=== PATIENT | male | born 1975 | race Caucasian/White ===

== ENCOUNTER 2025-04-18 04:17 | Inpatient (IN) | payer BC, SELFPAY ==
[2025-04-18] VITALS (206 sets, daily range): BP systolic 125–214; BP diastolic 95–152; PULSE 90–147; RESP 0–26; TEMP 36.4–37.2; O2SAT 90–100; BMI 37.3
--- NOTE | 2025-04-18 04:31 | ECG_ITS ---
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
--- NOTE | 2025-04-18 04:32 | ED_ITS ---
Documented by User: Sydney Maldonado MD 04/18/25 05:24 HPI - GI Bleed 2 General: Chief complaint: GI Bleed Stated complaint: Vomiting Blood\Fever\Chills Time Seen by Provider: 04/18/25 04:26 History of Present Illness: 49-year-old man history of hypertension, diabetes and obesity who presents emergency room with concerns for GI bleeding. He had had some epigastric discomfort earlier. He then developed some vomiting that was bright red. He said he had had a red drink but then he had some red stools came afraid that he was having GI bleeding. He says his vomit smelled like iron so he was sure that it was blood. He has been taking ibuprofen and eaten spicy foods recently. Never had anything like this before. He said he is very diaphoretic but on sure if he had a fever. Related Data Previous Rx's ?Medication ?Instructions ?Recorded lisinopril 10 mg tablet 10 mg PO DAILY #90 tabs 07/16 metformin 500 mg tablet,extended 500 mg PO DAILY #90 t abs 12/31/23 release 24 hr sertraline 100 mg tablet 150 mg (1.5 x 100 mg) PO SHIRLEY LY 12/31/23 #145 tabs Allergies Allergy/AdvReac Type Severity Reaction Status Date / Time No Known Allergies Allergy Verified 10/28/24 08:12 Review of Systems 2 Narrative: Constitutional symptoms: Negative except as documented in HPI. Skin symptoms: Negative except as documented in HPI. Eye symptoms: Negative except as documented in HPI. ENMT symptoms: Negative except as documented in HPI. Respiratory symptoms: Negative except as documented in HPI. Cardiovascular symptoms: Negative except as documented in HPI. Gastrointestinal symptoms: Negative except as documented in HPI. Genitourinary symptoms: Negative except as documented in HPI. Musculoskeletal symptoms: Negative except as documented in HPI. Neurologic symptoms: Negative except as documented in HPI. Psychiatric symptoms: Negative except as documented in HPI. Endocrine symptoms: Negative except as documented in HPI. PFSH ED 2 PFSH: Medical History Hyperglycemia Depression Hypertension Physical Exam 2 Narrative: EXAM NARRATIVE: General: Alert, no acute distress. Skin: Warm, dry. Head: Normocephalic, atraumatic. Neck: Supple, trachea midline. Eye: Extraocular movements are intact. Ears, nose, mouth and throat: mucosa moist. Cardiovascular: Regular, Normal peripheral perfusion. Respiratory: Lungs are clear to auscultation, respirations are non-labored, breath sounds are equal, Symmetrical chest wall expansion. Gastrointestinal: Soft, Nontender, Non distended Musculoskeletal: Normal ROM, no deformity. Neurological: Alert and oriented, No focal neurological deficit observed. Psychiatric: Cooperative, appropriate mood & affect. Course 2 Vital Signs: Vital signs: Vital Signs Temperature 98.3 F 04/18/25 04:25 Pulse Rate 130 H 04/18/25 06:46 Respiratory Rate 18 04/18/25 06:46 Blood Pressure 174/111 04/18/25 06:46 Pulse Oximetry 98 04/18/25 06:46 Oxygen Delivery Me thod Room Air 04/18/25 06:46 MDM - GI Bleed Medical Decision Making Medical decision making: Differential diagnosis including but not limited to and based on the above HPI, review of systems and physical exam: In a patient with upper GI bleeding would have concern for upper gi bleed from varices or ulcer. Concern for anemia. Concern for liver disease. concern for anticoagulation. Orders placed to evaluate differential diagnosis based on the above differential, HPI and physical exam EKG: Time 443. Rate 127. Sinus tachycardia, No ST-T changes, no ectopy, normal [place] & QRS intervals, This was reviewed and interpreted by myself the ER physician at 4:40 AM. 4:50 AM. Patient blood pressure dropped from initial down to the 80s and then back up to 108. At that point with a normal hemoglobin I treated him empirically for sepsis with 2 L normal saline and broad-spectrum antibiotics. Zyvox and Merrem. Lab Review: Laboratory results were reviewed and interpreted by myself the emergency room physician. Initial lab work shows white count of 24,000 with a hemoglobin of 15 and platelets of 463. Patient care transitioned Dr. Smiley at shift change. Lab Data 04/18/25 04:48 04/18/25 04:48 Radiology Impressions Abdomen/Pelvis CT 04/18/25 05:24 IMPRESSION: 1. No evidence of acute abdominal or pelvic process. 2. Hepatic steatosis. 3. Left upper pole renal cortical lesions measuring 3.3 and 4.7 cm which are slightly hyperdense to water and thus indeterminate. Follow-up nonemergent renal ultrasound is recommended to assess composition. COMMENTS: Consistent with the [place] [employer]'s Incidental Findings Committee white paper (J Am Leatha Radiol 2018): Any incidental renal lesion less than 1 cm or classified as too small to characterize, or any incidental cystic renal lesion characterized as simple-appearing, is likely benign. No follow-up imaging is recommended for these lesions per consensus recommendations based on imaging criteria. Laboratory Results WBC 24.24 10^3/uL (3.29-11.43) H 04/18/25 04:48 RBC 5.75 10^6/uL (3.85-5.65) H 04/18/25 04:48 Hgb 15.70 g/dL (11.27-16.99) 04/18/25 04:48 Hct 48.3 % (37-53) 04/18/25 04:48 MCV 84.0 fl (82-101) 04/18/25 04:48 MCH 27.3 pg (27-33) 04/18/25 04:48 MCHC 32.5 g/dL (30-55) 04/18/25 04:48 RDW 13.8 % (12.1-15.1) 04/18/25 04:48 Plt Count 463 10^3/cmm (157-399) H 04/18/25 04:48 MPV 10.5 fL (7.4-10.4) H 04/18/25 04:48 Neut % (Auto) 84.9 % 04/18/25 04:48 Lymph % (Auto) 9.8 % 04/18/25 04:48 [place] % (Auto) 4.3 % 04/18/25 04:48 Eos % (Auto) 0.1 % 04/18/25 04:48 Baso % (Auto) 0.4 % 04/18/25 04:48 Neut # (Auto) 20.58 10^3/uL (1.8-7.7) H 04/18/25 04:48 Lymph # (Auto) 2.4 10^3/uL (0.8-4.8) 04/18/25 04:48 [place] # (Auto) 1.1 10^3/uL (0.2-0.9) H 04/18/25 04:48 Eos # (Auto) 0.0 10^3/uL (0.0-0.8) 04/18/25 04:48 Baso # (Auto) 0.1 10^3/uL (0.0-0.1) 04/18/25 04:48 Nucleated RBC % (auto) 0 % 04/18/25 04:48 Nucleated RBCs # 0.0 /100WBC 04/18/25 04:48 PT 13.80 SECONDS (12.1-14.9) 04/18/25 04:48 INR 0.99 (0.8-1.2) 04/18/25 04:48 APTT 27.5 SECONDS (23.9-36.7) 04/18/25 04:48 Specimen Type Arterial 04/18/25 05:23 Sample Site Brachial, right 04/18/25 05:23 ABG pH 7.44 (7.35-7.45) 04/18/25 05:23 ABG pCO2 26.3 mmHg (35-45) L 04/18/25 05:23 ABG pO2 107.0 mmHg (80.0-100.0) H 04/18/25 05:23 ABG PO2/FiO2 Ratio 509 04/18/25 05:23 ABG HCO3 17.7 mmol/L (22-26) L 04/18/25 05:23 ABG O2 Saturation 99.1 04/18/25 05:23 ABG Base Excess -5.2 mmol/L (-2.0-2.0) L 04/18/25 05:23 Ajay Test N/a 04/18/25 05:23 A-a O2 Gradient 1.0 mmHg (5-10) L 04/18/25 05:23 Hematocrit 36.9 % (42-52) L 04/18/25 05:23 Hgb O2 Saturation 97.0 % (95-100) 04/18/25 05:23 Carboxyhemoglobin 1.2 %THgb (0.4-20.1) 04/18/25 05:23 Methemoglobin 1.0 % (0.4-1.5) 04/18/25 05:23 Total Hemoglobin 12.0 g/dL (14-18) L 04/18/25 05:23 Sodium 143.0 mmol/L (131-143) 04/18/25 05:23 Potassium 3.2 mmol/L (3.5-5.0) L 04/18/25 05:23 Glucose 141.0 mg/dL (70-115) H 04/18/25 05:23 Ionized Calcium 1.1 mmol/L (1.1-1.4) 04/18/25 05:23 O2 Delivery Device Room air 04/18/25 05:23 FiO2 21.0 % 04/18/25 05:23 Sales Agent Pest Control Service ID Amh 04/18/25 05:23 Sodium 141 mmol/L (136-145) 04/18/25 04:48 Potassium 4.3 mmol/L (3.5-5.1) 04/18/25 04:48 Chloride 104 mmol/L (98-107) 04/18/25 04:48 Carbon Dioxide 23 mmol/L (22-29) 04/18/25 04:48 Anion Gap 18.3 (5-19) 04/18/25 04:48 BUN 38 mg/dL (6-20) H 04/18/25 04:48 Creatinine 0.9 mg/dL (0.7-1.2) 04/18/25 04:48 GFR Calculation 90.4 mL/min (90-130) 04/18/25 04:48 Glucose 155 mg/dL (65-115) H 04/18/25 04:48 Calculated Osmolality 304 mOsm/kg (285-295) H 04/18/25 04:48 Lactic Acid 3.1 mmol/L (0.5-2.2) H 04/18/25 04:48 Calcium 10.2 mg/dL (8.5-10.5) 04/18/25 04:48 Total Bilirubin 0.6 mg/dL (0.15-1.2) 04/18/25 04:48 AST 11 U/L (0-40) 04/18/25 04:48 ALT 18 U/L (0-41) 04/18/25 04:48 Alkaline Phosphatase 50 U/L (40-130) 04/18/25 04:48 Troponin T Baseline 26 ng/L (0-15) H 04/18/25 04:48 C-Reactive Protein 3.5 mg/L (0.0-4.9) 04/18/25 04:48 Total Protein 6.8 g/dL (6.6-8.7) 04/18/25 04:48 Albumin 4.5 g/dL (3.5-5.2) 04/18/25 04:48 Globulin 2.3 g/dL (1.3-4.6) 04/18/25 04:48 Lipase 26 U/L (13-60) 04/18/25 04:48 Urine Color Yellow (Yellow) 04/18/25 06:15 Urine Appearance Clear (CLEAR) 04/18/25 06:15 Urine pH 6.0 (5-7) 04/18/25 06:15 Ur Specific [place] 1.027 (1.005-1.030) 04/18/25 06:15 Urine Protein Negative (Negative) 04/18/25 06:15 Urine Glucose (UA) Negative (Normal) 04/18/25 06:15 Urine Ketones 1+ (Negative) H 04/18/25 06:15 Urine Blood Negative (Negative) 04/18/25 06:15 Urine Nitrate Negative (Negative) 04/18/25 06:15 Urine Bilirubin Negative (Negative) 04/18/25 06:15 Urine Urobilinogen 0.2 mg/dL (Negative) 04/18/25 06:15 Ur Leukocyte Esterase Negative (Negative) 04/18/25 06:15 Urine RBC 0-2 /hpf (0-2) 04/18/25 06:15 Urine WBC 0-5 /hpf (0-5) 04/18/25 06:15 Ur Squamous Epith Cells 0-5 /hpf (0-5) 04/18/25 06:15 Amorphous Sediment Not Reportable 04/18/25 06:15 Urine Bacteria None seen /hpf (NONE) 04/18/25 06:15 Hyaline Casts 0-4 /lpf H 04/18/25 06:15 Influenza A (PCR) Negative (Negative) 04/18/25 04:48 Influenza Type B (PCR) Negative (Negative) 04/18/25 04:48 RSV (PCR) Negative (Negative) 04/18/25 04:48 SARS-CoV-2 (PCR) Negative (Negative) 04/18/25 04:48 Discharge Plan Discharge Patient Disposition: Admitted As Inpatient Clinical Impression: Upper gastrointestinal hemorrhage, Sepsis, Diabetes mellitus Condition: Stable Sign Out Sign Out Data: Patient Sign Out occurred on 04/18/25 at 05:29. Patient's care was discussed, and care was transferred from Sydney Maldonado MD to Juarez Smiley DO. Coding Level of Care Code ED Reading Instructor for Chg Fwd Documented by User: Juarez Smiley DO 04/18/25 06:58 HPI - GI Bleed 2 General: Chief complaint: GI Bleed Stated complaint: Vomiting Blood\Fever\Chills Time Seen by Provider: 04/18/25 04:26 Related Data Previous Rx's ?Medication ?Instructions ?Recorded lisinopril 10 mg tablet 10 mg PO DAILY #90 tabs 07/16 metformin 500 mg tablet,extended 500 mg PO DAILY #90 t abs 12/31/23 release 24 hr sertraline 100 mg tablet 150 mg (1.5 x 100 mg) PO SHIRLEY LY 12/31/23 #145 tabs Allergies Allergy/AdvReac Type Severity Reaction Status Date / Time No Known Allergies Allergy Verified 10/28/24 08:12 PFSH ED 2 PFSH: Medical History Hyperglycemia Depression Hypertension Course 2 Vital Signs: Vital signs: Vital Signs Temperature 98.3 F 04/18/25 04:25 Pulse Rate 130 H 04/18/25 06:46 Respiratory Rate 18 04/18/25 06:46 Blood Pressure 174/111 04/18/25 06:46 Pulse Oximetry 98 04/18/25 06:46 Oxygen Delivery Me thod Room Air 04/18/25 06:46 MDM - GI Bleed Medical Decision Making Medical decision making: Differential diagnosis including but not limited to and based on the above HPI, review of systems and physical exam: In a patient with upper GI bleeding would have concern for upper gi bleed from varices or ulcer. Concern for anemia. Concern for liver disease. concern for anticoagulation. Orders placed to evaluate differential diagnosis based on the above differential, HPI and physical exam EKG: Time 443. Rate 127. Sinus tachycardia, No ST-T changes, no ectopy, normal [place] & QRS intervals, This was reviewed and interpreted by myself the ER physician at 4:40 AM. 4:50 AM. Patient blood pressure dropped from initial down to the 80s and then back up to 108. At that point with a normal hemoglobin I treated him empirically for sepsis with 2 L normal saline and broad-spectrum antibiotics. Zyvox and Merrem. Lab Review: Laboratory results were reviewed and interpreted by myself the emergency room physician. Initial lab work shows white count of 24,000 with a hemoglobin of 15 and platelets of 463. Patient care transitioned Dr. Smiley at shift change. Care assumed at change of shift patient has signs of sepsis. Lactic acid elevated white count markedly elevated he is already received Protonix. Hemoglobin initially is stable will need to be repeated he is repeat received appropriate written broad-spectrum antibiotics. He has received 2 L of normal saline ordered 30 mL/kg on ideal body weight because he is obese. This at another 190 mL liters of normal saline minimal run rated [address] does not show any acute pathology in the abdomen or pelvis. Lipase is normal. BUN is elevated to suspect based on his history and his labs he has had a upper GI bleed. Will admit likely will need EGD discussed with hospitalist, consult surgery Medical Records I reviewed the patient's medical records. Lab Data I reviewed the patient's lab results. 04/18/25 04:48 04/18/25 04:48 Radiology Impressions Abdomen/Pelvis CT 04/18/25 05:24 IMPRESSION: 1. No evidence of acute abdominal or pelvic process. 2. Hepatic steatosis. 3. Left upper pole renal cortical lesions measuring 3.3 and 4.7 cm which are slightly hyperdense to water and thus indeterminate. Follow-up nonemergent renal ultrasound is recommended to assess composition. COMMENTS: Consistent with the [place] [employer]'s Incidental Findings Committee white paper (J Am Leatha Radiol 2018): Any incidental renal lesion less than 1 cm or classified as too small to characterize, or any incidental cystic renal lesion characterized as simple-appearing, is likely benign. No follow-up imaging is recommended for these lesions per consensus recommendations based on imaging criteria. Laboratory Results WBC 24.24 10^3/uL (3.29-11.43) H 04/18/25 04:48 RBC 5.75 10^6/uL (3.85-5.65) H 04/18/25 04:48 Hgb 15.70 g/dL (11.27-16.99) 04/18/25 04:48 Hct 48.3 % (37-53) 04/18/25 04:48 MCV 84.0 fl (82-101) 04/18/25 04:48 MCH 27.3 pg (27-33) 04/18/25 04:48 MCHC 32.5 g/dL (30-55) 04/18/25 04:48 RDW 13.8 % (12.1-15.1) 04/18/25 04:48 Plt Count 463 10^3/cmm (157-399) H 04/18/25 04:48 MPV 10.5 fL (7.4-10.4) H 04/18/25 04:48 Neut % (Auto) 84.9 % 04/18/25 04:48 Lymph % (Auto) 9.8 % 04/18/25 04:48 [place] % (Auto) 4.3 % 04/18/25 04:48 Eos % (Auto) 0.1 % 04/18/25 04:48 Baso % (Auto) 0.4 % 04/18/25 04:48 Neut # (Auto) 20.58 10^3/uL (1.8-7.7) H 04/18/25 04:48 Lymph # (Auto) 2.4 10^3/uL (0.8-4.8) 04/18/25 04:48 [place] # (Auto) 1.1 10^3/uL (0.2-0.9) H 04/18/25 04:48 Eos # (Auto) 0.0 10^3/uL (0.0-0.8) 04/18/25 04:48 Baso # (Auto) 0.1 10^3/uL (0.0-0.1) 04/18/25 04:48 Nucleated RBC % (auto) 0 % 04/18/25 04:48 Nucleated RBCs # 0.0 /100WBC 04/18/25 04:48 PT 13.80 SECONDS (12.1-14.9) 04/18/25 04:48 INR 0.99 (0.8-1.2) 04/18/25 04:48 APTT 27.5 SECONDS (23.9-36.7) 04/18/25 04:48 Specimen Type Arterial 04/18/25 05:23 Sample Site Brachial, right 04/18/25 05:23 ABG pH 7.44 (7.35-7.45) 04/18/25 05:23 ABG pCO2 26.3 mmHg (35-45) L 04/18/25 05:23 ABG pO2 107.0 mmHg (80.0-100.0) H 04/18/25 05:23 ABG PO2/FiO2 Ratio 509 04/18/25 05:23 ABG HCO3 17.7 mmol/L (22-26) L 04/18/25 05:23 ABG O2 Saturation 99.1 04/18/25 05:23 ABG Base Excess -5.2 mmol/L (-2.0-2.0) L 04/18/25 05:23 Ajay Test N/a 04/18/25 05:23 A-a O2 Gradient 1.0 mmHg (5-10) L 04/18/25 05:23 Hematocrit 36.9 % (42-52) L 04/18/25 05:23 Hgb O2 Saturation 97.0 % (95-100) 04/18/25 05:23 Carboxyhemoglobin 1.2 %THgb (0.4-20.1) 04/18/25 05:23 Methemoglobin 1.0 % (0.4-1.5) 04/18/25 05:23 Total Hemoglobin 12.0 g/dL (14-18) L 04/18/25 05:23 Sodium 143.0 mmol/L (131-143) 04/18/25 05:23 Potassium 3.2 mmol/L (3.5-5.0) L 04/18/25 05:23 Glucose 141.0 mg/dL (70-115) H 04/18/25 05:23 Ionized Calcium 1.1 mmol/L (1.1-1.4) 04/18/25 05:23 O2 Delivery Device Room air 04/18/25 05:23 FiO2 21.0 % 04/18/25 05:23 Sales Agent Pest Control Service ID Amh 04/18/25 05:23 Sodium 141 mmol/L (136-145) 04/18/25 04:48 Potassium 4.3 mmol/L (3.5-5.1) 04/18/25 04:48 Chloride 104 mmol/L (98-107) 04/18/25 04:48 Carbon Dioxide 23 mmol/L (22-29) 04/18/25 04:48 Anion Gap 18.3 (5-19) 04/18/25 04:48 BUN 38 mg/dL (6-20) H 04/18/25 04:48 Creatinine 0.9 mg/dL (0.7-1.2) 04/18/25 04:48 GFR Calculation 90.4 mL/min (90-130) 04/18/25 04:48 Glucose 155 mg/dL (65-115) H 04/18/25 04:48 Calculated Osmolality 304 mOsm/kg (285-295) H 04/18/25 04:48 Lactic Acid 3.1 mmol/L (0.5-2.2) H 04/18/25 04:48 Calcium 10.2 mg/dL (8.5-10.5) 04/18/25 04:48 Total Bilirubin 0.6 mg/dL (0.15-1.2) 04/18/25 04:48 AST 11 U/L (0-40) 04/18/25 04:48 ALT 18 U/L (0-41) 04/18/25 04:48 Alkaline Phosphatase 50 U/L (40-130) 04/18/25 04:48 Troponin T Baseline 26 ng/L (0-15) H 04/18/25 04:48 C-Reactive Protein 3.5 mg/L (0.0-4.9) 04/18/25 04:48 Total Protein 6.8 g/dL (6.6-8.7) 04/18/25 04:48 Albumin 4.5 g/dL (3.5-5.2) 04/18/25 04:48 Globulin 2.3 g/dL (1.3-4.6) 04/18/25 04:48 Lipase 26 U/L (13-60) 04/18/25 04:48 Urine Color Yellow (Yellow) 04/18/25 06:15 Urine Appearance Clear (CLEAR) 04/18/25 06:15 Urine pH 6.0 (5-7) 04/18/25 06:15 Ur Specific [place] 1.027 (1.005-1.030) 04/18/25 06:15 Urine Protein Negative (Negative) 04/18/25 06:15 Urine Glucose (UA) Negative (Normal) 04/18/25 06:15 Urine Ketones 1+ (Negative) H 04/18/25 06:15 Urine Blood Negative (Negative) 04/18/25 06:15 Urine Nitrate Negative (Negative) 04/18/25 06:15 Urine Bilirubin Negative (Negative) 04/18/25 06:15 Urine Urobilinogen 0.2 mg/dL (Negative) 04/18/25 06:15 Ur Leukocyte Esterase Negative (Negative) 04/18/25 06:15 Urine RBC 0-2 /hpf (0-2) 04/18/25 06:15 Urine WBC 0-5 /hpf (0-5) 04/18/25 06:15 Ur Squamous Epith Cells 0-5 /hpf (0-5) 04/18/25 06:15 Amorphous Sediment Not Reportable 04/18/25 06:15 Urine Bacteria None seen /hpf (NONE) 04/18/25 06:15 Hyaline Casts 0-4 /lpf H 04/18/25 06:15 Influenza A (PCR) Negative (Negative) 04/18/25 04:48 Influenza Type B (PCR) Negative (Negative) 04/18/25 04:48 RSV (PCR) Negative (Negative) 04/18/25 04:48 SARS-CoV-2 (PCR) Negative (Negative) 04/18/25 04:48 All radiology interpretation(s) finalized by discharge Discharge Plan Discharge Patient Disposition: Admitted As Inpatient Clinical Impression: Upper gastrointestinal hemorrhage, Sepsis, Diabetes mellitus Condition: Stable Sign Out Sign Out Data: Patient Sign Out occurred on 04/18/25 at 05:29. Patient's care was discussed, and care was transferred from Sydney Maldonado MD to Juarez Smiley DO. Coding Level of Care Code ED Reading Instructor for [place]
[2025-04-18] MEDS: sodium chloride 0.9% 1,000 ML 999 ML IV ×2 (04:53→05:00)
[2025-04-18] MEDS: pantoprazole 40 mg SDV 80 MG IVP (04:54)
[2025-04-18 04:58] LABS: Basophils # 0.1 10^3/uL (0.0-0.1); Basophils % 0.4 %; Eosinophils % 0.1 %; Hematocrit 48.3 % (37-53); Lymphocytes # 2.4 10^3/uL (0.8-4.8); Lymphocytes % 9.8 %; Mean Corpuscular HGB Conc 32.5 g/dL (30-55); Mean Corpuscular Hemoglobin 27.3 pg (27-33); Mean Platelet Volume 10.5 fL (7.4-10.4); Monocytes # 1.1 10^3/uL (0.2-0.9); Monocytes % 4.3 %; Neutrophils # 20.58 10^3/uL (1.8-7.7); Neutrophils % 84.9 %; Nucleated Red Blood Cells % 0 %; Platelet Count 463 10^3/cmm (157-399); Red Blood Count 5.75 10^6/uL (3.85-5.65); Red Cell Distribution Width 13.8 % (12.1-15.1); White Blood Count 24.24 10^3/uL (3.29-11.43)
[2025-04-18 05:14] LABS: Alanine Aminotransferase 18 U/L (0-41); Albumin Level 4.5 g/dL (3.5-5.2); Alkaline Phosphatase 50 U/L (40-130); Anion Gap 18.3 (5-19); Aspartate Amino Transferase 11 U/L (0-40); Blood Urea Nitrogen 38 mg/dL (6-20); C Reactive Protein 3.5 mg/L (0.0-4.9); Calcium 10.2 mg/dL (8.5-10.5); Carbon Dioxide 23 mmol/L (22-29); Chloride 104 mmol/L (98-107); Globulin 2.3 g/dL (1.3-4.6); Glomerular Filtration Rate 90.4 mL/min (90-130); Glucose 155 mg/dL (65-115); INR 0.99 (0.8-1.2); Lipase 26 U/L (13-60); Osmolality Calculated 304 mOsm/kg (285-295); Potassium 4.3 mmol/L (3.5-5.1); Sodium 141 mmol/L (136-145); Total Bilirubin 0.6 mg/dL (0.15-1.2); Total Protein 6.8 g/dL (6.6-8.7); Troponin(5th) Baseline 26 ng/L (0-15)
[2025-04-18 05:15] LABS: Lactic Sepsis W/Reflex 3.1 mmol/L (0.5-2.2); Partial Thromboplastin Time 27.5 SECONDS (23.9-36.7)
--- NOTE | 2025-04-18 05:24 | CTR_ITS ---
PROCEDURE INFORMATION: Exam: CT Abdomen And Pelvis With Contrast Exam date and time: 04/18/2025 5:38 AM Age: 49 years old Clinical indication: Abdominal pain; Generalized TECHNIQUE: Imaging protocol: Computed tomography of the abdomen and pelvis with contrast. Radiation optimization: All CT scans at this facility use at least one of these dose optimization techniques: automated exposure control; mA and/or kV adjustment per patient size (includes targeted exams where dose is matched to clinical indication); or iterative reconstruction. Contrast material: OPTI 350; Contrast volume: 100 ml; Contrast route: INTRAVENOUS (IV); COMPARISON: No relevant prior studies available. RADIATION DOSE METRICS: Total DLP (mGy-cm): 1103.5 FINDINGS: Liver: Diffuse hepatic hypoattenuation. Gallbladder and biliary ducts: Status post cholecystectomy. No evidence of significant biliary obstruction. Pancreas: Normal. No ductal dilation. Spleen: Normal. No splenomegaly. Adrenal glands: Normal. No mass. Kidneys and ureters: Left upper pole renal cortical lesions measuring 3.3 and 4.7 cm which are slightly hyperdense to water and thus indeterminate. Left renal cysts measuring up to 2 cm. Nonspecific low-density foci of the kidneys statistically favor benign cysts, no follow-up imaging is recommended, as large as 9 mm. Nonobstructing 4 mm left lower pole renal stone. Stomach and bowel: Unremarkable. No obstruction. No mucosal thickening. Appendix: No evidence of appendicitis. Intraperitoneal space: Unremarkable. No free air. No significant fluid collection. Vasculature: Unremarkable. No abdominal aortic aneurysm. Lymph nodes: Unremarkable. No enlarged lymph nodes. Urinary bladder: Unremarkable as visualized. Reproductive: Unremarkable as visualized. Bones/joints: Unremarkable. No acute fracture. Soft tissues: Unremarkable. CT/CT abdomen pelvis w con* [id number] IMPRESSION: 1. No evidence of acute abdominal or pelvic process. 2. Hepatic steatosis. 3. Left upper pole renal cortical lesions measuring 3.3 and 4.7 cm which are slightly hyperdense to water and thus indeterminate. Follow-up nonemergent renal ultrasound is recommended to assess composition. COMMENTS: Consistent with the [place] [employer]'s Incidental Findings Committee white paper (J Am Leatha Radiol 2018): Any incidental renal lesion less than 1 cm or classified as too small to characterize, or any incidental cystic renal lesion characterized as simple-appearing, is likely benign. No follow-up imaging is recommended for these lesions per consensus recommendations based on imaging criteria.
[2025-04-18 05:34] LABS: ABG PCO2 26.3 mmHg (35-45); ABG PH Result 7.44 (7.35-7.45); Arterial Blood Gas Hematocrit 36.9 % (42-52); Base Excess ABG -5.2 mmol/L (-2.0-2.0); Blood Gas Operator Identificat AMH; Blood Gas Sample Site Brachial, right; Blood Gas Sample Type Arterial; Carboxyhemoglobin 1.2 %THgb (0.4-20.1); HCO3 ABG 17.7 mmol/L (22-26); Ionized Calcium Level - ABG 1.1 mmol/L (1.1-1.4); Oxygen Device ROOM AIR; Oxygen Saturation ABG 99.1; PO2 FiO2 Ratio Arterial Blood 509; Potassium Level - ABG 3.2 mmol/L (3.5-5.0)
[2025-04-18 05:36] LABS: Influenza A NEGATIVE (Negative); Influenza B NEGATIVE (Negative); Respiratory Syncytial Virus Ce NEGATIVE (Negative); SARS-CoV-2 PCR NEGATIVE (Negative)
[2025-04-18] MEDS: iohexol 350 mg/mL 500 mL Btl (per mL) IV ×2 (05:41→11:33)
[2025-04-18] MEDS: sodium chloride 0.9% 2,190 ML 2190 ML IV (06:06)
[2025-04-18] MEDS: linezolid premix 600 MG/300 ML PREMIX 300 MG IV (06:08)
[2025-04-18] MEDS: meropenem 500 mg SDV IVP ×3 (06:08→23:58)
[2025-04-18 06:21] LABS: Bilirubin Urine Negative (Negative); Blood Urine Negative (Negative); Glucose Urine UA Negative (Normal); Ketones Urine 1+ (Negative); Leukocyte Esterase Urine Negative (Negative); Nitrate Urine Negative (Negative); Protein Urine Negative (Negative); Specific Gravity, Urine 1.027 (1.005-1.030); Urine Appearance Clear (CLEAR); Urine Color Yellow (Yellow); Urobilinogen Urine 0.2 mg/dL (Negative)
[2025-04-18 06:26] LABS: Bacteria Urine None Seen /hpf; Hyaline Casts Urine 0-4 /lpf; RBC Urine 0-2 /hpf (0-2); Squamous Epithelial Cell Urine 0-5 /hpf (0-5); WBC Urine 0-5 /hpf (0-5)
--- NOTE | 2025-04-18 06:31 | ECG_ITS ---
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 [id number]
[2025-04-18 06:43] LABS: Reflex Lactate Order REFLEX LACTIC ORDERD
[2025-04-18 06:48] LABS: Troponin 5 2HR 38.13 ng/L (0-15)
[2025-04-18 06:58] LABS: Troponin 5 2HR Delta 12.13 ABS# (0-10)
--- NOTE | 2025-04-18 07:02 | ECG_ITS ---
[facility] Test Date: 2025-04-18 Pat Name: Mumtaz Espinosa Department: Room: Gender: Male Medical Payment Poster: : 1975 Requested By: Sydney Obrien Order Number: [id number] Reading MD: Measurements Intervals [place] Rate: 128 P: 34 [place]: 158 QRS: 35 QRSD: 89 T: 30 QT: 311 QTc: 455 Interpretive Statements SINUS TACHYCARDIA ABNORMAL RHYTHM ECG Compared to ECG 04/18/2025 06:24:07 No significant changes [email or web address]
--- NOTE | 2025-04-18 07:12 | XRR_ITS ---
PROCEDURE INFORMATION: Exam: XR Chest Exam date and time: 04/18/2025 8:13 AM Age: 49 years old Clinical indication: Condition or disease; Other: Sepsis TECHNIQUE: Imaging protocol: Radiologic exam of the chest. Views: 1 view. COMPARISON: CT abdomen pelvis w con* [id number] 04/18/2025 5:38 AM FINDINGS: Lungs: Unremarkable. No consolidation. Pleural spaces: Unremarkable. No pleural effusion. No pneumothorax. Heart/Mediastinum: Unremarkable. No cardiomegaly. Bones/joints: Unremarkable. XR/XR chest 1V portable [id number] IMPRESSION: No acute findings.
--- NOTE | 2025-04-18 07:53 | P.CONIM_ITS ---
Providers/Reason For Consult 2 Consulting Physician/Specialty*: General Surgery Reason for Consult*: GI bleed Attending Physician: Adrien Bonilla MD Primary Care Provider: Armin Stein MD History of Present Illness History of Present Illness Mumtaz Espinosa is a 49 year old male who presents to the ER with upper GI bleeding. Patient denies any significant clinical history but endorses that about 11 PM last night he had a bout of melanotic stools followed by 1 episode of hematemesis. No abdominal pain although he has some slight abdominal discomfort and cramping. Review of Systems 2 General: Reports: 10 or more systems reviewed and unremarkable except in HPI and below Medications/Allergies Home Medications ?Medication ?Instructions ?Recorded ?Confirmed ?Last Taken ?Type lisinopril 10 mg tablet 10 mg PO DAILY #90 tabs 07/1612/31/23 Unknown Rx metformin 500 mg tablet,extended 500 mg PO DAILY #90 t abs 12/31/23 12/31/23 Unknown Rx release 24 hr sertraline 100 mg tablet 150 mg (1.5 x 100 mg) PO SHIRLEY LY 12/31/23 12/31/23 Unknown Rx #145 tabs Allergies Allergy/AdvReac Type Severity Reaction Status Date / Time No Known Allergies Allergy Verified 10/28/24 08:12 PFSH Acute 2 PFSH: Medical History Hyperglycemia Depression Hypertension Vitals/I&O/Wt Last Vital Signs Temp 98.3 F 04/18/25 04:25 Pulse 123 H 04/18/25 07:21 Resp 18 04/18/25 06:46 BP 149/108 04/18/25 07:21 Pulse Ox 96 04/18/25 07:21 O2 Del Method Room Air 04/18/25 07:13 04/17/25 04/18/25 04/18/25 22:59 06:59 14:59 Intake Total 4000 / 4000 Balance 4000 / 4000 Weight last 48 hrs Weight 260 lb Physical Exam 2 GI: OTHER: Abdominal signs benign abdomen soft nontender nondistended. Data 04/18/25 04:48 04/18/25 04:48 Micro: Microbiology 04/18/25 04:50 Blood Culture - Preliminary Blood SPECIMEN COLLECTED 04/18/25 04:48 Blood Culture - Preliminary Blood SPECIMEN COLLECTED A&P Assessment and plan (1) Upper gastrointestinal hemorrhage: Plan 49-year-old male presenting with upper GI bleeding, he does take ibuprofen from time to time but other than that he denies any other risk factors for peptic ulcer disease. Currently is stable although slightly tachycardic. First hemoglobin was 15.7 he is white count is elevated, I suspect this to be hemoconcentration. We will repeat labs after initial resuscitation. I have discussed with the patient upper endoscopy with bleeding control. I discussed all risks and benefits with the patient including the risks of rebleeding, perforation, need for surgical interventions, injury to soft tissue of the mouth and pharynx. Patient shows understanding agrees with the plan. We will proceed with upper endoscopy tomorrow morning around 7 AM, in this 24 hours I recommend resuscitation, blood transfusion as needed, serial labs and patient should be placed in a PPI drip versus twice a day high-dose PPI. Consider octreotide drip as guided by medical team. PDMP PDMP Reviewed: Not Reviewed Coding Level of Care Code 22576 Diagnoses Upper gastrointestinal hemorrhage K92.2
[2025-04-18 09:04] LABS: Basophils % 0.2 %; Hematocrit 39.3 % (37-53); Lymphocytes # 1.6 10^3/uL (0.8-4.8); Lymphocytes % 8.9 %; Mean Corpuscular HGB Conc 33.1 g/dL (30-55); Mean Corpuscular Hemoglobin 27.6 pg (27-33); Mean Corpuscular Volume 83.4 fl (82-101); Mean Platelet Volume 10.4 fL (7.4-10.4); Monocytes # 0.6 10^3/uL (0.2-0.9); Monocytes % 3.7 %; Neutrophils % 86.8 %; Nucleated Red Blood Cells % 0 %; Platelet Count 305 10^3/cmm (157-399); Red Blood Count 4.71 10^6/uL (3.85-5.65); Red Cell Distribution Width 13.5 % (12.1-15.1); White Blood Count 17.51 10^3/uL (3.29-11.43)
[2025-04-18 09:22] LABS: Lactic Acid level (Lactate) 1.7 mmol/L (0.5-2.2)
--- NOTE | 2025-04-18 09:36 | CT_ITS ---
WS: [id number] CT CHEST ANGIOGRAPHY WITH REFORMATS HISTORY: assess for PE TECHNIQUE: Contiguous axial images are obtained through the chest during arterial injection of intravenous contrast. Images are reconstructed to evaluate the pulmonary arteries. MIP imaging also reviewed. All CT scans at [facility] use at least one of these dose optimization techniques: automated exposure control; mA and/or kV adjustment per patient size (includes targeted exams where dose is matched to clinical indication); or iterative reconstruction. CONTRAST: Omnipaque 350; 100 mL IV. DLP: 1019.40 mGy.cm COMPARISON: None available. Good opacification of the pulmonary arteries. No filling defects are identified. Pulmonary artery size is normal. No RIGHT heart strain. Normal size heart. Mild atherosclerosis aorta. No pericardial or pleural effusions. RIGHT upper lobe calcified granuloma. No pneumonia. No mass or nodules. Small hiatal hernia. No adrenal mass. Incompletely visualized low-attenuation mass upper pole LEFT kidney. The lobulated mass may be 2 separate renal lesions measuring 4.0 x 6.8 cm. Also noted on a recent CT of 04/18/2025. Hounsfield units are slightly elevating suggesting these may be hemorrhagic cysts. Cortical cyst upper pole RIGHT kidney are too small to characterize. Degenerative changes throughout the thoracic spine. CT/CT angio chest PE protcl [id number] IMPRESSION: 1. No pulmonary embolism. 2. No RIGHT heart strain. 3. No pneumonia. 4. Indeterminate cystic masses LEFT kidney as described also on a prior CT of 04/18/2025. Ultrasound is recommended of the upper pole LEFT renal complex mass is.
[2025-04-18 09:42] LABS: Thyroid Stimulating Hormone 1.08 uIU/mL (0.27-4.20)
--- NOTE | 2025-04-18 10:12 | P.HP_ITS ---
Providers/Chief Complaint 2 Admitting Physician: Adrien Bonilla MD Primary Care Provider: Armin Stein MD Chief Complaint: Vomiting Blood\Fever\Chills History of Present Illness Mumtaz Espinosa is a 49 year old male with a history of hypertension and pre-diabetes presents with new onset vomiting containing blood and dark stool, both occurring once last night (vomiting around 1 am, dark stool noted around 11:30 pm to midnight). The patient denies prior episodes of gastrointestinal bleeding and has not had prior endoscopies. They have been taking Advil (ibuprofen) intermittently for neck pain over the past few weeks. The patient reports chills and prolonged sweating after the episode last night, with some sweating again in the morning. There is no fever, sore throat, cough, phlegm, chest pain, chest pressure, diarrhea, urinary symptoms, or rashes. The patient has a history of elevated heart rate, typically in the 90s, but currently noted to be higher (121-130). The patient denies any recent dietary changes and reports eating normally. No abdominal pain is currently present. The patient denies alcohol use but reports marijuana use. There is a family history of heart disease. The patient has a history of pre-diabetes and has used metformin in the past. No recent use of corticosteroids or acid blockers prior to admission, but acid blockers were started in the hospital. The patient received IV fluids and antibiotics in the ER. The patient is awaiting a chest x-ray and has had a CT scan of the abdomen previously. No swelling in the lower extremities was noted. The patient is currently on bed rest. Review of Systems 2 Const: Denies: fever(s), chills, body aches or malaise ENMT: Denies: throat pain Card: Denies: chest pain, edema, pre-syncope or dyspnea on exertion Resp: Denies: dyspnea, productive cough, change in phlegm color or hemoptysis GI: Reports: hematemesis and melena; Denies: abdominal pain, nausea, diarrhea or constipation : Denies: flank pain, difficulty urinating, urinary frequency or hematuria Musc: Denies: back pain, joint swelling or joint redness Skin/Breast: Denies: rash or new lesions Neuro: Denies: headache(s) or confusion Medications/Allergies Home Medications ?Medication ?Instructions ?Recorded ?Confirmed ?Last Taken ?Type lisinopril 10 mg tablet 10 mg PO DAILY #90 tabs 0207/1612/31/23 Unknown Rx metformin 500 mg tablet,extended 500 mg PO DAILY #90 t abs 12/31/23 12/31/23 Unknown Rx release 24 hr sertraline 100 mg tablet 150 mg (1.5 x 100 mg) PO SHIRLEY LY 12/31/23 12/31/23 Unknown Rx #145 tabs Allergies Allergy/AdvReac Type Severity Reaction Status Date / Time No Known Allergies Allergy Verified 10/28/24 08:12 PFSH Acute 2 PFSH: Medical History Hyperglycemia Depression Hypertension Social History Smoking and tobacco/nicotine status: never used tobacco/nicotine Alcohol intake: never Substance/Drug Use: current Substance/Drug use type: Marijuana Vitals/I&O/Wt Last Vital Signs Temp 98.3 F 04/18/25 04:25 Pulse 116 H 04/18/25 10:00 Resp 12 04/18/25 10:00 BP 171/104 04/18/25 09:45 Pulse Ox 95 04/18/25 10:00 O2 Del Method Room Air 04/18/25 10:00 04/17/25 04/18/25 04/18/25 22:59 06:59 14:59 Intake Total 4000 / 4000 0 / 0 Output Total 400 / 400 Balance 4000 / 4000 -400 / -400 Weight last 48 hrs Weight 117.934 kg Weight 117.934 kg Physical Exam 2 Narrative: Accompanied by his mom Const: COMMON NORMALS: patient oriented x3 and alert GENERAL APPEARANCE: c ooperative ORIENTATION/CONSCIOUSNESS: Yes awake HENMT: COMMON NORMALS: oropharynx normal Neck/C-Spine: COMMON NORMALS: no JVD Resp: COMMON NORMALS: normal respiratory effort and clear to auscultation bilaterally AUSCULTATION: clear to auscultation bilaterally Cardio: COMMON NORMALS: no JVD, regular rhythm, S1 normal heart sound present, S2 normal heart sound present and No murmurs present (Cardio) RHYTHM: regular rhythm HEART SOUNDS: S1 normal heart sound present and S2 normal heart sound present GI: COMMON NORMALS: Normal to inspection, nondistended, normoactive bowel sounds present, Soft to palpation and non-tender PALPATION: Yes Soft to palpation Extremity: COMMON NORMALS: no joint enlargement and no pedal edema Neuro: COMMON NORMALS: patient oriented x3 and moves all extremities S ENSORIUM/ORIENTATION: Yes alert Skin: COMMON NORMALS: no rashes or lesions noted GENERAL SKIN EXAM: no rashes or lesions noted Urinary Catheter Management: Guerra: Cath Placed During This Visit: yes Urinary Catheter Date of Insertion: 04/18/25 Urinary Catheter Time of Insertion: 09:56 Quick SOFA Score: Respiratory Rate: 12 Blood Pressure: 171/104 Lagro Coma Scale: 15 qSOFA Score: 0 If qSOFA score 2 or greater, continue: PaO2/FiO2 Ratio (mmHg): 509 Blood Pressure Mean: 126 Bilirubin (mg/dl): 0.6 Platelets (x10?/ml): 305 C reatinine (mg/dl): 0.9 SOFA Score: 0 Evaluation: Current stage of sepsis: severe sepsis Sepsis stage criteria used: [facility] Sep-1 and Sepsis-3 Focused Exam: Vital signs: Temp Pulse Resp BP Pulse Ox O2 Del Method 04/18/25 10:45 108 H 04/18/25 10:00 116 H 12 95 Room Air 04/18/25 09:55 115 H 12 96 Room Air 04/18/25 09:50 116 H 14 93 Room Air 04/18/25 09:45 120 H 12 171/104 97 Room Air 04/18/25 09:40 117 H 13 171/104 98 Room Air 04/18/25 09:35 117 H 15 171/104 98 Room Air 04/18/25 09:30 127 H 12 171/104 97 Room Air 04/18/25 09:25 123 H 10 L 149/110 96 Room Air 04/18/25 09:20 130 H 12 158/107 97 Room Air 04/18/25 09:10 123 H 12 158/107 96 Room Air 04/18/25 09:05 119 H 12 158/107 95 Room Air 04/18/25 09:00 144 H 22 H 145/104 97 Room Air 04/18/25 08:55 126 H 10 L 145/104 97 Room Air 04/18/25 08:50 131 H 15 145/104 98 Room Air 04/18/25 08:45 131 H 12 145/104 97 Room Air 04/18/25 08:40 130 H 11 L 151/101 97 Room Air 04/18/25 08:35 131 H 12 151/101 98 Room Air 04/18/25 08:30 135 H 12 174/106 97 Room Air 04/18/25 08:25 134 H 12 174/106 96 Room Air 04/18/25 08:20 134 H 12 174/106 97 Room Air 04/18/25 08:15 147 H 12 174/118 96 Room Air 04/18/25 08:10 133 H 12 174/118 97 Room Air 04/18/25 08:06 Room Air 04/18/25 08:05 142 H 20 H 174/118 98 Room Air 04/18/25 08:00 137 H 14 195/152 97 Room Air 04/18/25 07:55 137 H 18 195/152 98 Room Air 04/18/25 07:50 128 H 25 H 195/152 98 Room Air 04/18/25 07:45 141 H 20 H 203/128 96 Room Air 04/18/25 07:40 130 H 18 203/128 97 Room Air 04/18/25 07:37 130 H 04/18/25 07:21 123 H 149/108 96 04/18/25 07:13 124 H 168/110 99 Room Air 04/18/25 06:46 130 H 18 174/111 98 Room Air 04/18/25 06:12 110 H 16 186/108 98 Room Air 04/18/25 05:18 102 H 14 169/108 98 Room Air 04/18/25 04:38 127 H 140/105 98 Room Air 04/18/25 04:25 98.3 F 124 H 20 H 140/105 99 Room Air Date exam was performed: 04/18/25 Time exam was performed: 11:38 2 Sepsis Screen No Definite Risk Today, 07:13 Respiratory Rate, (12 - 18) 12 breaths/min Today, 10:00 Blood Pressure 171/104 mmHg Today, 09:45 Lagro Coma Scale Score 15 Today, 10:02 Quick SOFA Score 0 Today, 11:34 SOFA Score: 2 ABG PO2/FiO2 Ratio 509 Today, 05:23 Robin Coma Scale Score 15 Today, 10:02 Blood Pressure Mean 126 mmHg Today, 09:45 Total Bilirubin, (0.15-1.2) 0.6 mg/dL Today, 04:48 Platelet Count, (157-399) 305 10^3/cmm Δ Today, 08:53 Creatinine, (0.7-1.2) 0.9 mg/dL Today, 04:48 SOFA Score 0 Today, 11:34 Data 04/18/25 08:53 04/18/25 04:48 Micro: Microbiology 04/18/25 04:50 Blood Culture - Preliminary Blood SPECIMEN COLLECTED 04/18/25 04:48 Blood Culture - Preliminary Blood SPECIMEN COLLECTED A&P Assessment and plan (1) Upper gastrointestinal hemorrhage: Hematemesis last night as well as melanotic stool. Also having chills, sweats. Came to ER early this morning. So far without additional hematemesis, abdomen with some rumbling, feels like he might have additional bowel movement. Reviewed vitals, CBC, ABG, INR, CMP, troponin, TSH, UA, UDS, flu/COVID/RSV, CT abdomen pelvis, chest x-ray, ER provider note, discussed with ER provider. Upper gastrointestinal bleeding. Received 80 mg IV PPI. Continue 40 mg IV twice daily. Requested 2 units RBC to be held for him. Noted persistent tachycardia 120s-130s. Hypertensive. The patient presented with new onset hematemesis and melena, with a history of recent NSAID (Advil) use for neck pain. No prior history of GI bleeding or endoscopy. The patient is currently on acid reji therapy and is being evaluated by surgery for possible endoscopy. There is concern for ongoing or recurrent bleeding, and the patient is on bed rest. - Continue acid reji medications (e.g., Protonix) - Monitor hemoglobin and recheck at intervals - Two units of blood placed on hold for possible transfusion - surgery consulted (Dr. Madrid) for endoscopic evaluation, likely within 24 hours - Strict bed rest and keep patient horizontal to prevent orthostatic hypotension - Avoid NSAIDs (Advil) - NPO. Continue IV fluid resuscitation. Monitor for risk of fluid overload. (2) Sepsis: Sepsis with leukocytosis of 24, with resuscitation improvement to 17, with tachycardia, sinus tachycardia 120-130. Lactic acidosis 3.1. Severe sepsis with troponin elevation with demand ischemia, troponin up from 26-38 at 2 hours. Without chest pain. Source unknown. Without neurologic, integumentary, urinary symptoms. With nausea vomiting, sweats last night. Possible GI? Requesting broader viral panel. Reviewed CT abdomen pelvis, incidentally noted hepatic steatosis, left upper pole renal cortical lesions measuring 2.3 to 4.7 cm slightly hyperdense, follow-up with nonemergent renal ultrasound recommended. He denies any GI symptoms, no recent diarrhea. No abdominal pain. No pulmonary symptoms, without cough or shortness of breath. Did have an episode of vomiting. Discussed with him possibility of aspiration, possible aspiration pneumonia. Chest x-ray obtained, reviewed, normal. Discussed with him also assessment with CT angiogram PE protocol with persistent tachycardia and troponin ovation. Pending additional evaluation. Blood culture collected, received empiric antibiotic coverage with meropenem and linezolid. Continue empiric antibiotics for now. Monitor for risk of thrombocytopenia, glomera suppression with linezolid. Risk of seizure with meropenem. Also check stool for C. difficile if having diarrhea. Plan Troponin level elevated, baseline 26, 2 hours 38, positive delta of 12. No chest pain. Suspected demand ischemia secondary to severe sepsis and GI bleeding. Complete troponin EKG series. Obtain echocardiogram once tachycardia with some improvement. Unable to provide antiplatelet or anticoagulation at this time. He is not aware of history of heart disease, never had any issues with chest pain, denies history of IN or stents in himself. History of heart disease does run in his family. Additional assessment with CTA chest discussed with him and his mom. HTN:History of hypertension, on lisinopril at home. Blood pressure gradually improving. Requesting TTE for assessment. Caution with antihypertensive due to risk of shock. Hypertension with tachycardia, will check urinary catecholamines. Requested UDS. Incidentally noted hepatic steatosis: Will need follow-up with PCP after discharge. Incidentally noted left upper pole renal cortical lesions measuring 3.3 x 4.7 cm slightly hyperdense to water, indeterminate. Will need to follow-up with primary provider for nonemergent renal ultrasound. PDMP PDMP Reviewed: Not Reviewed Attestations 2 Medical Necessity Statement*: Admission over 2 midnights dissipated for assessment management of upper GI bleeding, severe sepsis. Coding Level of Care Code Critical Care >/= 30 minutes Critical care time (in minutes): 40 The high probability of a clinically significant, sudden or life threatening deterioration, as referenced in this documentation, required my full and direct attention, intervention and personal management. The critical care time shown is in addition to time spent performing any reported separately billable procedures and includes the following: [x] Data and vital sign review and interpretation [x ] Patient assessment, examination and intervention [x] Medication orders and management [x] Patient/Family updates as able [x] Care Coordination and Documentation. Diagnoses Upper gastrointestinal hemorrhage K92.2 Sepsis A41.9
[2025-04-18 10:43] LABS: Amphetamines Screen Urine Negative (Negative); Barbiturates Screen Urine Negative (Negative); Benzodiazepines Screen Urine Negative (Negative); Cocaine Screen Urine Negative (Negative); Opiate Screen Urine Negative (Negative); PCP Screen Urine Negative (Negative); THC Screen Urine Positive (Negative)
--- NOTE | 2025-04-18 10:55 | PC.NURSE ---
Patient arrived to ICU 6 at approximately 0740, Belongings at bedside include clothing only, all other belongings sent with his mother. Patient has no wounds, reports no pain and denies nausea at this time. Guerra catheter placed per Dr. Rios order, patient is on room air. NS infusing at 150ml/hr from ER.
[2025-04-18 11:10] LABS: Troponin 5 6HR 34.82 ng/L (0-15); Troponin 5 6HR Delta 8.82 ng/L (0-12)
--- NOTE | 2025-04-18 11:32 | USCV_ITS ---
Mumtaz Espinosa Age: 49 Gender: M : 1975 Exam Date: 04/18/2025 15:06 Ordering Phys: Roberto Carlos Rios MD Technologist: Exam Location: [facility] [place] Indication: ef BP: 154 / 75 HR: Rhythm: Sinus Technical Quality: Adequate MEASUREMENTS (Male / Female) Normal Values 2D ECHO LV Diastolic Diameter PLAX 4.9 cm 4.2 - 5.9 / 3.9 - 5.3 cm IVS Diastolic Thickness 1.3 cm 0.6 - 1.0 / 0.6 - 0.9 cm IVS Systolic Thickness 1.6 cm LVPW Diastolic Thickness 1.2 cm 0.6 - 1.0 / 0.6 - 0.9 cm LVPW Systolic Thickness 1.5 cm LVOT Diameter 1.8 cm LV Ejection Fraction 2D Teich 68.4 % LV Ejection Fraction MOD 4C 68.6 % LV Ejection Fraction MOD 2C 58.5 % LV Ejection Fraction 2C AL 57.1 % LA Diameter 3.0 cm RA Systolic Volume 4C AL 48.6 ml RA Systolic Volume 4C MOD 47.3 ml Aorta at Sinotubular Diameter 2.7 cm IVC Diameter 2.4 cm M-MODE LA Ao Ratio MM 1.3 AV Cusp Separation MM 2.2 cm FINDINGS Left Ventricle Normal left ventricular size, systolic function and wall thickness, with no regional wall motion abnormalities. Left ventricular ejection fraction is estimated at 60 %. Right Ventricle Right Atrium Left Atrium Mitral Valve Aortic Valve Tricuspid Valve Pulmonic Valve Pericardium Aorta IVC CONCLUSIONS Normal left ventricular size, systolic function and wall thickness, with no regional wall motion abnormalities. Left ventricular ejection fraction is estimated at 60 %. There is no pericardial effusion. Lisa Acuña MD (Electronically Signed) Final Date: 19 Apr 2025 12:51 S
[2025-04-18] MEDS: sodium chloride 0.9% 1,000 ML 150 ML IV ×3 (11:39→23:57)
[2025-04-18] MEDS: pantoprazole 40 mg SDV IVP ×2 (11:54→23:57)
[2025-04-18 12:27] LABS: Hematocrit 36.7 % (37-53)
[2025-04-18 14:12] LABS: Adenovirus Not Detected (NOT DETECT); Chlamydia Pneumoniae Not Detected (NOT DETECT); Coronavirus 229E,HKU1,NL63,OC4 Not Detected (NOT DETECT); Human Metapneumovirus Not Detected (NOT DETECT); Human Rhinovirus/Enterovirus Not Detected (NOT DETECT); Influenza A Not Detected (NOT DETECT); Influenza A H1 Not Detected (NOT DETECT); Influenza A H1-2009 Not Detected (NOT DETECT); Influenza A H3 Not Detected (NOT DETECT); Influenza B Not Detected (NOT DETECT); Mycoplasma Pneumoniae Not Detected (NOT DETECT); Parainfluenza Virus Type 1 Not Detected (NOT DETECT); Parainfluenza Virus Type 2 Not Detected (NOT DETECT); Parainfluenza Virus Type 3 Not Detected (NOT DETECT); Parainfluenza Virus Type 4 Not Detected (NOT DETECT); Respiratory Syncytial Virus A Not Detected (NOT DETECT); Respiratory Syncytial Virus B Not Detected (NOT DETECT); SARS-COV-2 Not Detected (NOT DETECT)
--- NOTE | 2025-04-18 14:47 | PC.PHAR ---
Patient states He is still taking Sertraline and Lisinipril . He also states he filled At [facility]. I verified fill dates with [facility] Pharmacist . Last fill was September.
[2025-04-18 15:04] LABS: C.Diff PCR (Lab) NEGATIVE (Negative)
[2025-04-18 16:18] LABS: Hematocrit 35.9 % (37-53)
[2025-04-18 18:01] LABS: MRSA PCR OZH (swab) NOT DETECTED (Negative)
[2025-04-18 20:16] LABS: Hematocrit 36.9 % (37-53)
[2025-04-19] VITALS (166 sets, daily range): BP systolic 107–185; BP diastolic 79–126; PULSE 70–121; RESP 0–39; TEMP 36.1–36.9; O2SAT 93–100; BMI 37.3
[2025-04-19 03:27] LABS: Basophils # 0.1 10^3/uL (0.0-0.1); Basophils % 0.4 %; Eosinophils # 0.1 10^3/uL (0.0-0.8); Eosinophils % 0.7 %; Hematocrit 34.5 % (37-53); Lymphocytes # 3.2 10^3/uL (0.8-4.8); Lymphocytes % 23.2 %; Mean Corpuscular HGB Conc 32.5 g/dL (30-55); Mean Corpuscular Hemoglobin 27.6 pg (27-33); Mean Platelet Volume 10.3 fL (7.4-10.4); Monocytes # 0.9 10^3/uL (0.2-0.9); Monocytes % 6.5 %; Neutrophils # 9.32 10^3/uL (1.8-7.7); Neutrophils % 68.6 %; Nucleated Red Blood Cells % 0 %; Platelet Count 278 10^3/cmm (157-399); Red Blood Count 4.06 10^6/uL (3.85-5.65); Red Cell Distribution Width 14.2 % (12.1-15.1); White Blood Count 13.59 10^3/uL (3.29-11.43)
[2025-04-19 03:56] LABS: Alanine Aminotransferase 13 U/L (0-41); Albumin Level 3.5 g/dL (3.5-5.2); Alkaline Phosphatase 37 U/L (40-130); Anion Gap 12.6 (5-19); Aspartate Amino Transferase 9 U/L (0-40); Blood Urea Nitrogen 18 mg/dL (6-20); Calcium 8.5 mg/dL (8.5-10.5); Carbon Dioxide 23 mmol/L (22-29); Chloride 112 mmol/L (98-107); Creatinine Clr Calc Pharmacy 146.8845; Glomerular Filtration Rate 103.6 mL/min (90-130); Glucose 93 mg/dL (65-115); Osmolality Calculated 300 mOsm/kg (285-295); Potassium 3.6 mmol/L (3.5-5.1); Sodium 144 mmol/L (136-145); Total Bilirubin 0.4 mg/dL (0.15-1.2); Total Protein 5.5 g/dL (6.6-8.7)
--- NOTE | 2025-04-19 05:47 | W.PM.OPSUD ---
Surgery/Procedure H&P Update DATE OF PROCEDURE: April 19, 2025 DATE H&P PERFORMED: 04/18/25 H&P UPDATE INFORMATION: I have reviewed H&P completed within last 30 days, I have examined patient prior to procedure, No changes to prior documentation, H&P is in [facility] EMR on date indicated and Risks and benefits of the procedure reviewed PLANNED PROCEDURE: Operation Date: 04/19/25 07:00 Proposed Procedures p EGD with possible bleeding control(Not Applicable) - Russell Madrid MD
--- NOTE | 2025-04-19 06:27 | PC.NURSE ---
Patient had no complaints of pain or nausea. 1 loose BM that was black and 2 other attempts. Patient hypertensive and ST. Provider notified. Patient received a bath and clean linens this morning prior to going to the GI lab for procedure. 1300 out in zheng. Report given to Sarah in GI lab.
--- NOTE | 2025-04-19 06:52 | ANES.PREANE2 ---
Pre-Anesthetic Assessment Height/Weight: Height 1.78 m Weight 117.9 kg Temp Pulse Resp BP Pulse Ox O2 Del Method 98.2 F 108 H 5 L 174/111 94 Room Air 04/19/25 04:36 04/19/25 06:04 04/19/25 06:04 04/19/25 06:04 04/19/25 06:04 04/18/25 18:05 Preop Diagnosis: GI bleed Operation Date: 04/19/25 07:00 Proposed Procedures p EGD with possible bleeding control(Not Applicable) - Russell Madrid MD Was Beta Travis taken within 24 hours: N/A Was Clonidine taken within 24 hours: N/A Social Daily weed Exam alert, oriented x 3, clear to auscultation bilaterally and regular rate & rhythm Airway Submandibular: within normal limits Cervical ROM: within normal limits Mallampati: Class II Dentition: full History/ROS No significant history except as noted and No significant complaints Pulmonary None reported CV/HEM Hypertension None reported Hepatic None reported GI None reported Metabolic Morbid Obesity [facility] [place] None reported Neuropsych Depression Anesthetic Plan ASA status: 2 Anesthesia: Anesthesia Evaluation and MAC Risk of > 500 ml blood loss (7ml/kg in children): No Medications/Allergies Home Medications ?Medication ?Instructions ?Recorded ?Confirmed ?Last Taken ?Type lisinopril 10 mg tablet 10 mg PO DAILY #90 tabs 12/31/23 04/18/25 Unknown Rx sertraline 100 mg tablet 150 mg (1.5 x 100 mg) PO DAILY 12/31/23 04/18/25 Unknown Rx #145 tabs ibuprofen 200 mg tablet (Advil) 400 mg PO Q6H PRN Fever Or Pain 04/18/25 04/18/25 04/16/25 History Allergies Allergy/AdvReac Type Severity Reaction Status Date / Time No Known Allergies Allergy Verified 10/28/24 08:12 Current Medications Generic Name Dose Route Start Last Admin Trade Name Freq PRN Reason Stop Dose Admin Sodium Chloride 1,000 mls @ 150 mls/hr 04/18/25 07:40 04/19/25 06:43 Sodium Chloride 0.9% IV Infused .Q6H40M CASSIDY Infusion Meropenem 500 mg 04/18/25 16:00 04/18/25 23:58 Meropenem 500 Mg Sdv IVP 500 mg Q8H CASSIDY Administration Protocol Pantoprazole Sodium 40 mg 04/18/25 12:00 04/18/25 23:57 Pantoprazole 40 Mg Sdv IVP 40 mg Q12H CASSIDY Administration PFSH Anesthesia Medical History Hyperglycemia Depression Hypertension Social History Smoking and tobacco/nicotine status: never used tobacco/nicotine Alcohol intake: never Substance/Drug Use: current Substance/Drug use type: Marijuana Data Anesthesia 04/19/25 03:06 04/19/25 03:06 Short CBC 04/18/25 04/18/25 04/18/25 Range/Units 04:48 08:53 12:00 WBC 24.24 H 17.51 H (3.29-11.43) 10^3/uL Hgb 15.70 13.00 12.00 (11.27-16.99) g/dL Hct 48.3 39.3 36.7 L (37-53) % MCV 84.0 83.4 (82-101) fl Plt Count 463 H 305 D (157-399) 10^3/cmm Neut % (Auto) 84.9 86.8 % Neut # (Auto) 20.58 H 15.20 H (1.8-7.7) 10^3/uL 04/18/25 04/18/25 04/19/25 Range/Units 16:06 20:11 03:06 WBC 13.59 H (3.29-11.43) 10^3/uL Hgb 11.90 12.10 11.20 L (11.27-16.99) g/dL Hct 35.9 L 36.9 L 34.5 L (37-53) % MCV 85.0 (82-101) fl Plt Count 278 (157-399) 10^3/cmm Neut % (Auto) 68.6 % Neut # (Auto) 9.32 H (1.8-7.7) 10^3/uL BMP 04/18/25 04/19/25 04:48 03:06 Sodium 141 144 Potassium 4.3 3.6 Chloride 104 112 H Carbon Dioxide 23 23 BUN 38 H 18 Creatinine 0.9 0.8 Glucose 155 H 93 Calcium 10.2 8.5 Cardiac Enzymes 04/18/25 04/18/25 04/18/25 Range/Units 04:48 06:25 10:12 Troponin T Baseline 26 H (0-15) ng/L Troponin T 120 Minute 38.13 H (0-15) ng/L Delta Troponin T 12.13 H* (0-10) ABS# Troponin T Hi Sens 6Hr 34.82 H (0-15) ng/L Troponin T Hi Sens 6Hr Delta 8.82 (0-12) ng/L Liver Function 04/18/25 04/19/25 Range/Units 04:48 03:06 Total Bilirubin 0.6 0.4 (0.15-1.2) mg/dL AST 11 9 (0-40) U/L ALT 18 13 (0-41) U/L Alkaline Phosphatase 50 37 L (40-130) U/L Albumin 4.5 3.5 (3.5-5.2) g/dL Urine 04/18/25 Range/Units 06:15 Urine Color Yellow (Yellow) Urine Appearance Clear (CLEAR) Urine pH 6.0 (5-7) Ur Specific [place] 1.027 (1.005-1.030) Urine Protein Negative (Negative) Urine Glucose (UA) Negative (Normal) Urine Ketones 1+ H (Negative) Urine Nitrate Negative (Negative) Urine Bilirubin Negative (Negative) Ur Leukocyte Esterase Negative (Negative) Urine RBC 0-2 (0-2) /hpf Urine WBC 0-5 (0-5) /hpf Blood Bank 04/18/25 08:53 Blood Type A Positive Rho(D) Type Rh positive Antibody Screen Negative COVID Results 04/18/25 04/18/25 04:48 11:50 Coronavirus 229E (PCR) Not detected SARS-CoV-2 (PCR) Negative Not detected Coags 04/18/25 04:48 PT 13.80 INR 0.99 APTT 27.5 C-Reactive Protein 3.5 ABG 04/18/25 05:23 Specimen Type Arterial Sample Site Brachial, right ABG pH 7.44 ABG pCO2 26.3 L ABG pO2 107.0 H ABG PO2/FiO2 Ratio 509 ABG HCO3 17.7 L ABG O2 Saturation 99.1 ABG Base Excess -5.2 L A-a O2 Gradient 1.0 L O2 Delivery Device Room air FiO2 21.0 Microbiology 04/18/25 04:48 Blood Culture - Preliminary Blood NEGATIVE TO DATE 04/18/25 04:50 Blood Culture - Preliminary Blood NEGATIVE TO DATE 04/18/25 14:06 Occult Blood (FIT) - Final Stool
[2025-04-19] MEDS: sodium chloride 0.9% 1,000 ML 15 ML IV (06:58)
--- NOTE | 2025-04-19 07:17 | PM.MISC ---
Miscellaneous Note Purpose of Documentation: Update on patient care Note: Upper endoscopy was done, there was no evidence of active bleeding but the patient had some ulcers in the prepyloric area, one was big and cratered which was the likely source of bleeding. Biopsies were taken from the antrum and duodenum. Patient is cleared to advance diet as tolerated from the surgical standpoint, upon discharge he should be discharged on twice a day PPI and Carafate and he can follow-up in my clinic to discuss repeat endoscopy in 4 to 6 weeks
--- NOTE | 2025-04-19 07:25 | PC.NURSE ---
Pt back to ICU unit from GI lab. Pt denies pain.
[2025-04-19] MEDS: sodium chloride 0.9% 1,000 ML 150 ML IV (07:35)
[2025-04-19] MEDS: metoprolol tartrate 25 mg Tablet PO ×2 (08:58→21:35)
[2025-04-19] MEDS: meropenem 500 mg SDV IVP ×2 (08:59→16:03)
--- NOTE | 2025-04-19 10:26 | P.PN_ITS ---
Subjective 2 Subjective: Today he is feeling better and more like his usual self. So far no further bowel movements since last night. No abdominal pain. Vitals/I&O/Wt Last Vital Signs Temp 98.5 F 04/19/25 07:30 Pulse 96 04/19/25 10:00 Resp 12 04/19/25 10:00 BP 148/107 04/19/25 10:00 Pulse Ox 99 04/19/25 10:00 O2 Del Method Room Air 04/19/25 10:00 04/18/25 04/19/25 04/19/25 22:59 06:59 14:59 Intake Total 1000 / 1000 1840 / 2840 460 / 460 Output Total 1030 / 1430 1300 / 2730 0 / 0 Balance -30 / -430 540 / 110 460 / 460 Weight last 48 hrs Weight 117.9 kg Weight 117.934 kg Weight 117.934 kg Physical Exam 2 Narrative: Accompanied by his mom Const: COMMON NORMALS: patient oriented x3 and alert GENERAL APPEARANCE: c ooperative ORIENTATION/CONSCIOUSNESS: Yes awake HENMT: COMMON NORMALS: oropharynx normal Neck/C-Spine: COMMON NORMALS: no JVD Resp: COMMON NORMALS: normal respiratory effort and clear to auscultation bilaterally AUSCULTATION: clear to auscultation bilaterally Cardio: COMMON NORMALS: no JVD, regular rhythm, S1 normal heart sound present, S2 normal heart sound present and No murmurs present (Cardio) RHYTHM: regular rhythm HEART SOUNDS: S1 normal heart sound present and S2 normal heart sound present GI: COMMON NORMALS: Normal to inspection, nondistended, normoactive bowel sounds present, Soft to palpation and non-tender PALPATION: Yes Soft to palpation Extremity: COMMON NORMALS: no joint enlargement and no pedal edema Neuro: COMMON NORMALS: patient oriented x3 and moves all extremities S ENSORIUM/ORIENTATION: Yes alert Skin: COMMON NORMALS: no rashes or lesions noted GENERAL SKIN EXAM: no rashes or lesions noted Urinary Catheter Management: Guerra: Cath Placed During This Visit: yes Reason for Continuing Indwelling Catheter: Accurate Measurement of Urinary Output in Critically Ill Patients Urinary Catheter Date of Insertion: 04/18/25 Urinary Catheter Time of Insertion: 09:56 Data 04/19/25 03:06 04/19/25 03:06 Micro: Microbiology 04/18/25 04:48 Blood Culture - Preliminary Blood NEGATIVE TO DATE 04/18/25 04:50 Blood Culture - Preliminary Blood NEGATIVE TO DATE 04/18/25 14:06 Occult Blood (FIT) - Final Stool A&P Assessment and plan (1) Upper gastrointestinal hemorrhage: Multiple additional melanotic bowel movements last night. Reviewed CBC this morning, hemoglobin down to 7.2, white count up to 13.59. Reviewed platelets, normal. Leukocytosis suspect reactive secondary to acute blood loss anemia. Subjectively he is feeling better today. So far without further bowel movement this morning. Underwent EGD with finding of multiple ulcers in different stages of healing. Discussed with him and his mother again avoidance of NSAIDs. Continue PPI. Discussed with the surgeon, continue PPI today, reassess blood counts tomorrow unless additional signs of bleeding. Heart rate has improved. If no further signs of rebleeding move out of ICU. As per discussion with him sertraline held for now while recovering from GI bleed due to possibility to contribute to bleeding. He does state that he will need to go back on it after a day or so since he feels unwell without it. Continue IV fluid for now until reestablishing oral intake, monitor for risk of fluid overload. Reduce IV fluid rate to 75 mL/h. (2) Sepsis: Leukocytosis improving, sinus tachycardia improving, concern for possible sepsis on presentation, although seems less likely, without obvious source. Reviewed vitals, CBC, CMP, expanded viral panel, nasal MRSA. Reviewed blood culture, negative to date. Continue clear antibiotic for now. Follow-up blood culture. Check procalcitonin. Monitor for risk of thrombocytopenia, glomera suppression with linezolid. Risk of seizure with meropenem. Also check stool for C. difficile if having diarrhea. Plan Troponin level elevated: With mild elevation. Without known history of heart disease in the past. Follow-up limited echo. Follow-up urine catecholamines. Continue treatment of possible sepsis for now. Reassess. Baseline 26, 2 hours 38, positive delta of 12. No chest pain. Suspected demand ischemia secondary to severe sepsis and GI bleeding. He is not aware of history of heart disease, never had any issues with chest pain, denies history of OH or stents in himself. History of heart disease does run in his family. Additional assessment with CTA chest discussed with him and his mom. HTN: Continues with hypertension, so far bleeding appears to have subsided. Resume lisinopril. Reduce IV fluid rate to 75 mL/h. Follow-up TTE. Monitor for risk of shock. Reviewed UDS. Incidentally noted hepatic steatosis: Will need follow-up with PCP after discharge. Discussed with him and his mother. Incidentally noted left upper pole renal cortical lesions measuring 3.3 x 4.7 cm slightly hyperdense to water, indeterminate. Will need to follow-up with primary provider for nonemergent renal ultrasound. Discussed with him and his mother. PDMP PDMP Reviewed: Not Reviewed Attestations 2 Medical Necessity Statement*: Continue admission for assessment and management of upper GI bleed with acute blood loss anemia, possible sepsis. and High MDM includes amount and/or complexity of data reviewed/ordered [ resulted lab(s)/test(s), ordered lab(s)/test(s) and other healthcare professional discussion] and described risk of complication, morbidity or mortality of management as documented Diagnoses Upper gastrointestinal hemorrhage K92.2 Sepsis A41.9
[2025-04-19] MEDS: sodium chloride 0.9% 1,000 ML 75 ML IV (11:05)
[2025-04-19] MEDS: lisinopril 10 mg Tablet PO (11:08)
[2025-04-19] MEDS: pantoprazole 40 mg SDV IVP (11:10)
[2025-04-20] VITALS (18 sets, daily range): BP systolic 116–163; BP diastolic 83–106; PULSE 71–92; RESP 0–16; TEMP 36.4–36.8; O2SAT 97–100
[2025-04-20] MEDS: meropenem 500 mg SDV IVP (00:50)
[2025-04-20] MEDS: pantoprazole 40 mg SDV IVP (00:50)
[2025-04-20 03:09] LABS: Basophils # 0.1 10^3/uL (0.0-0.1); Basophils % 0.5 %; Eosinophils # 0.3 10^3/uL (0.0-0.8); Eosinophils % 2.3 %; Hematocrit 30.7 % (37-53); Lymphocytes # 2.9 10^3/uL (0.8-4.8); Lymphocytes % 24.5 %; Mean Corpuscular HGB Conc 32.6 g/dL (30-55); Mean Corpuscular Hemoglobin 28.4 pg (27-33); Mean Corpuscular Volume 87.2 fl (82-101); Mean Platelet Volume 10.3 fL (7.4-10.4); Monocytes # 0.9 10^3/uL (0.2-0.9); Monocytes % 7.5 %; Neutrophils # 7.63 10^3/uL (1.8-7.7); Neutrophils % 64.6 %; Nucleated Red Blood Cells % 0 %; Platelet Count 231 10^3/cmm (157-399); Red Blood Count 3.52 10^6/uL (3.85-5.65); Red Cell Distribution Width 14.4 % (12.1-15.1)
[2025-04-20 03:25] LABS: Alanine Aminotransferase 10 U/L (0-41); Albumin Level 3.5 g/dL (3.5-5.2); Alkaline Phosphatase 39 U/L (40-130); Anion Gap 11.9 (5-19); Aspartate Amino Transferase 9 U/L (0-40); Blood Urea Nitrogen 8 mg/dL (6-20); Calcium 8.5 mg/dL (8.5-10.5); Carbon Dioxide 24 mmol/L (22-29); Chloride 109 mmol/L (98-107); Creatinine Clr Calc Pharmacy 167.8429; Globulin 1.9 g/dL (1.3-4.6); Glomerular Filtration Rate 120.9 mL/min (90-130); Glucose 91 mg/dL (65-115); Osmolality Calculated 290 mOsm/kg (285-295); Potassium 3.9 mmol/L (3.5-5.1); Sodium 141 mmol/L (136-145); Total Bilirubin 0.4 mg/dL (0.15-1.2); Total Protein 5.4 g/dL (6.6-8.7)
[2025-04-20 03:33] LABS: Procalcitonin 0.08 ng/mL (0-0.5)
[2025-04-20] MEDS: sodium chloride 0.9% 1,000 ML 75 ML IV (05:46)
--- NOTE | 2025-04-20 08:02 | PM.DCS ---
Discharge Providers Date of Admission: 04/18/25 07:25 Date of Discharge: April 20, 2025 Attending Provider at Admission: Adrien Bonilla MD Attending Provider at Discharge: Roberto Carlos Rios Primary Care Provider: Armin Stein MD Diagnoses at Discharge Discharge Diagnosis (1) Upper gastrointestinal hemorrhage: Status: Acute (2) Sepsis: Status: Acute Reason for Visit Reason for Visit: Vomiting Blood\Fever\Chills Brief History: Mumtaz Espinosa is a 49 year old male with a history of hypertension and pre-diabetes presents with new onset vomiting containing blood and dark stool, both occurring once last night (vomiting around 1 am, dark stool noted around 11:30 pm to midnight). The patient denies prior episodes of gastrointestinal bleeding and has not had prior endoscopies. They have been taking Advil (ibuprofen) intermittently for neck pain over the past few weeks. The patient reports chills and prolonged sweating after the episode last night, with some sweating again in the morning. There is no fever, sore throat, cough, phlegm, chest pain, chest pressure, diarrhea, urinary symptoms, or rashes. The patient has a history of elevated heart rate, typically in the 90s, but currently noted to be higher (121-130). The patient denies any recent dietary changes and reports eating normally. No abdominal pain is currently present. The patient denies alcohol use but reports marijuana use. There is a family history of heart disease. The patient has a history of pre-diabetes and has used metformin in the past. No recent use of corticosteroids or acid blockers prior to admission, but acid blockers were started in the hospital. The patient received IV fluids and antibiotics in the ER. The patient is awaiting a chest x-ray and has had a CT scan of the abdomen previously. No swelling in the lower extremities was noted. The patient is currently on bed rest. Hospital Course Hospital Course He was admitted and treated for upper GI bleeding with hypovolemic/hemorrhagic shock with severe tachycardia, possible sepsis with leukocytosis, tachycardia, lactic acidosis 3.1, received empiric antibiotic coverage. His blood counts were tracked. He received fluid resuscitation. Was treated with IV PPI twice daily. Per discussion with him NSAIDs are discontinued and to be avoided. Blood was prepared for him for transfusion. His blood counts continue to decline, although remained above transfusion threshold. He underwent EGD with finding of multiple gastric ulcers in various stages. Bleeding resolved. Hemoglobin declined as low as 10. Tachycardia has resolved. No further melanotic stools. Per discussion with surgery he is discharging home today with continued PPI and sucralfate twice daily, to follow-up with surgery in office in 2 weeks to set up for repeat endoscopy in 4 to 6 weeks. SSRI was held during hospitalization and is resumed at discharge with precautions to watch out for any recurrence of bleeding. On admission with noted positive troponin delta with overall mild elevation, without further rise. Chest pain-free. Echocardiogram without regional wall motion abnormality. Please follow-up stress test for which she is referred to further assess for possible silent coronary disease. On CT abdomen pelvis on presentation incidentally found to have cystic lesions/masses on the left kidney. As discussed with him, please follow-up with kidney ultrasound. Additional incidentally found to have hepatic steatosis on abdominal CT. Please follow-up as discussed with him including dietary changes, weight loss, and follow-up of steatosis with risk of developing cirrhosis and other complications. Physical Exam Narrative: He is feeling much better and back to his usual self. He is tolerating clear liquid diet. No further melanotic stools. Const: COMMON NORMALS: patient oriented x3 and alert GENERAL APPEARANCE: cooperative ORIENTATION/CONSCIOUSNESS: Yes awake HENMT: COMMON NORMALS: oropharynx normal Neck/C-Spine: COMMON NORMALS: no JVD Resp: COMMON NORMALS: normal respiratory effort and clear to auscultation bilaterally AUSCULTATION: clear to auscultation bilaterally Cardio: COMMON NORMALS: no JVD, regular rhythm, S1 normal heart sound present, S2 normal heart sound present and No murmurs present (Cardio) RHYTHM: regular rhythm HEART SOUNDS: S1 normal heart sound present and S2 normal heart sound present GI: COMMON NORMALS: Normal to inspection, nondistended, normoactive bowel sounds present, Soft to palpation and non-tender PALPATION: Yes Soft to palpation Extremity: COMMON NORMALS: no joint enlargement and no pedal edema Neuro: COMMON NORMALS: patient oriented x3 and moves all extremities SENSORIUM/ORIENTATION: Yes alert Skin: COMMON NORMALS: no rashes or lesions noted GENERAL SKIN EXAM: no rashes or lesions noted Urinary Catheter Management: Guerra: Cath Placed During This Visit: yes, but has since been removed by the nurse Reason for Continuing Indwelling Catheter: Decision to DC Catheter Urinary Catheter Date of Insertion: 04/18/25 Urinary Catheter Time of Insertion: 09:56 Date Urinary Catheter Removed: 04/19/25 Time Urinary Catheter Discontinued: 16:50 Discharge Data Studies Completed and Pending Completed Studies During Hospitalization Category Date Time Status CT abdomen pelvis w con* [id number] Stat Cat Scan 04/18/25 05:24 Completed CTA PE [CT angio chest PE protcl [id number]] Urgent Cat Scan 04/18/25 09:36 Completed XR chest 1V portable [id number] Stat Exams 04/18/25 07:12 Completed CV. echo limited [id number] Urgent Ultrasound 04/18/25 11:32 Completed Pending at discharge Category Date Time Status Blood Culture Stat Lab 04/18/25 04:50 Results Catecholamines Frac,Urine [place] Routine Lab 04/18/25 06:15 Received Catecholamines, Fraction Plasm Routine Lab 04/18/25 12:00 Received Complete Blood Count w/Auto AM LABS Lab 04/21/25 04:00 Ordered Comprehensive Metabolic Panel AM LABS Lab 04/21/25 04:00 Ordered Leukocyte Reduced RBC Routine Lab 04/18/25 08:53 Results Type and Screen Stat Lab 04/18/25 08:53 Results Pathology: Surgical [PTH] Routine Pth 04/19/25 07:13 Received Radiology Impressions Abdomen/Pelvis CT 04/18/25 05:24 IMPRESSION: 1. No evidence of acute abdominal or pelvic process. 2. Hepatic steatosis. 3. Left upper pole renal cortical lesions measuring 3.3 and 4.7 cm which are slightly hyperdense to water and thus indeterminate. Follow-up nonemergent renal ultrasound is recommended to assess composition. COMMENTS: Consistent with the [employer]'s Incidental Findings Committee white paper (J Am Leatha Radiol 2018): Any incidental renal lesion less than 1 cm or classified as too small to characterize, or any incidental cystic renal lesion characterized as simple-appearing, is likely benign. No follow-up imaging is recommended for these lesions per consensus recommendations based on imaging criteria. Chest X-Ray 04/18/25 07:12 IMPRESSION: No acute findings. Chest CTA 04/18/25 09:36 IMPRESSION: 1. No pulmonary embolism. 2. No RIGHT heart strain. 3. No pneumonia. 4. Indeterminate cystic masses LEFT kidney as described also on a prior CT of 04/18/2025. Ultrasound is recommended of the upper pole LEFT renal complex mass is. Laboratory Results WBC 11.80 10^3/uL (3.29-11.43) H 04/20/25 02:50 RBC 3.52 10^6/uL (3.85-5.65) L 04/20/25 02:50 Hgb 10.00 g/dL (11.27-16.99) L 04/20/25 02:50 Hct 30.7 % (37-53) L 04/20/25 02:50 MCV 87.2 fl (82-101) 04/20/25 02:50 MCH 28.4 pg (27-33) 04/20/25 02:50 MCHC 32.6 g/dL (30-55) 04/20/25 02:50 RDW 14.4 % (12.1-15.1) 04/20/25 02:50 Plt Count 231 10^3/cmm (157-399) 04/20/25 02:50 MPV 10.3 fL (7.4-10.4) 04/20/25 02:50 Neut % (Auto) 64.6 % 04/20/25 02:50 Lymph % (Auto) 24.5 % 04/20/25 02:50 [place] % (Auto) 7.5 % 04/20/25 02:50 Eos % (Auto) 2.3 % 04/20/25 02:50 Baso % (Auto) 0.5 % 04/20/25 02:50 Neut # (Auto) 7.63 10^3/uL (1.8-7.7) 04/20/25 02:50 Lymph # (Auto) 2.9 10^3/uL (0.8-4.8) 04/20/25 02:50 [place] # (Auto) 0.9 10^3/uL (0.2-0.9) 04/20/25 02:50 Eos # (Auto) 0.3 10^3/uL (0.0-0.8) 04/20/25 02:50 Baso # (Auto) 0.1 10^3/uL (0.0-0.1) 04/20/25 02:50 Nucleated RBC % (auto) 0 % 04/20/25 02:50 Nucleated RBCs # 0.0 /100WBC 04/20/25 02:50 PT 13.80 SECONDS (12.1-14.9) 04/18/25 04:48 INR 0.99 (0.8-1.2) 04/18/25 04:48 APTT 27.5 SECONDS (23.9-36.7) 04/18/25 04:48 Specimen Type Arterial 04/18/25 05:23 Sample Site Brachial, right 04/18/25 05:23 ABG pH 7.44 (7.35-7.45) 04/18/25 05:23 ABG pCO2 26.3 mmHg (35-45) L 04/18/25 05:23 ABG pO2 107.0 mmHg (80.0-100.0) H 04/18/25 05:23 ABG PO2/FiO2 Ratio 509 04/18/25 05:23 ABG HCO3 17.7 mmol/L (22-26) L 04/18/25 05:23 ABG O2 Saturation 99.1 04/18/25 05:23 ABG Base Excess -5.2 mmol/L (-2.0-2.0) L 04/18/25 05:23 Ajay Test N/a 04/18/25 05:23 A-a O2 Gradient 1.0 mmHg (5-10) L 04/18/25 05:23 Hematocrit 36.9 % (42-52) L 04/18/25 05:23 Hgb O2 Saturation 97.0 % (95-100) 04/18/25 05:23 Carboxyhemoglobin 1.2 %THgb (0.4-20.1) 04/18/25 05:23 Methemoglobin 1.0 % (0.4-1.5) 04/18/25 05:23 Total Hemoglobin 12.0 g/dL (14-18) L 04/18/25 05:23 Sodium 143.0 mmol/L (131-143) 04/18/25 05:23 Potassium 3.2 mmol/L (3.5-5.0) L 04/18/25 05:23 Glucose 141.0 mg/dL (70-115) H 04/18/25 05:23 Ionized Calcium 1.1 mmol/L (1.1-1.4) 04/18/25 05:23 O2 Delivery Device Room air 04/18/25 05:23 FiO2 21.0 % 04/18/25 05:23 [employer]oving [employer] Operator ID [id number] 04/18/25 05:23 Sodium 141 mmol/L (136-145) 04/20/25 02:50 Potassium 3.9 mmol/L (3.5-5.1) 04/20/25 02:50 Chloride 109 mmol/L (98-107) H 04/20/25 02:50 Carbon Dioxide 24 mmol/L (22-29) 04/20/25 02:50 Anion Gap 11.9 (5-19) 04/20/25 02:50 BUN 8 mg/dL (6-20) 04/20/25 02:50 Creatinine 0.7 mg/dL (0.7-1.2) 04/20/25 02:50 GFR Calculation 120.9 mL/min (90-130) 04/20/25 02:50 Glucose 91 mg/dL (65-115) 04/20/25 02:50 Calculated Osmolality 290 mOsm/kg (285-295) 04/20/25 02:50 Lactic Acid 3.1 mmol/L (0.5-2.2) H 04/18/25 04:48 Lactic Acid (Sepsis) 1.7 mmol/L (0.5-2.2) 04/18/25 08:53 Calcium 8.5 mg/dL (8.5-10.5) 04/20/25 02:50 Total Bilirubin 0.4 mg/dL (0.15-1.2) 04/20/25 02:50 AST 9 U/L (0-40) 04/20/25 02:50 ALT 10 U/L (0-41) 04/20/25 02:50 Alkaline Phosphatase 39 U/L (40-130) L 04/20/25 02:50 Troponin T Baseline 26 ng/L (0-15) H 04/18/25 04:48 Troponin T 120 Minute 38.13 ng/L (0-15) H 04/18/25 06:25 Delta Troponin T 12.13 ABS# (0-10) H* 04/18/25 06:25 Troponin T Hi Sens 6Hr 34.82 ng/L (0-15) H 04/18/25 10:12 Troponin T Hi Sens 6Hr Delta 8.82 ng/L (0-12) 04/18/25 10:12 C-Reactive Protein 3.5 mg/L (0.0-4.9) 04/18/25 04:48 Total Protein 5.4 g/dL (6.6-8.7) L 04/20/25 02:50 Albumin 3.5 g/dL (3.5-5.2) 04/20/25 02:50 Globulin 1.9 g/dL (1.3-4.6) 04/20/25 02:50 Lipase 26 U/L (13-60) 04/18/25 04:48 Procalcitonin 0.08 ng/mL (0-0.5) 04/20/25 02:50 TSH 1.08 uIU/mL (0.27-4.20) 04/18/25 06:25 Urine Color Yellow (Yellow) 04/18/25 06:15 Urine Appearance Clear (CLEAR) 04/18/25 06:15 Urine pH 6.0 (5-7) 04/18/25 06:15 Ur Specific [place] 1.027 (1.005-1.030) 04/18/25 06:15 Urine Protein Negative (Negative) 04/18/25 06:15 Urine Glucose (UA) Negative (Normal) 04/18/25 06:15 Urine Ketones 1+ (Negative) H 04/18/25 06:15 Urine Blood Negative (Negative) 04/18/25 06:15 Urine Nitrate Negative (Negative) 04/18/25 06:15 Urine Bilirubin Negative (Negative) 04/18/25 06:15 Urine Urobilinogen 0.2 mg/dL (Negative) 04/18/25 06:15 Ur Leukocyte Esterase Negative (Negative) 04/18/25 06:15 Urine RBC 0-2 /hpf (0-2) 04/18/25 06:15 Urine WBC 0-5 /hpf (0-5) 04/18/25 06:15 Ur Squamous Epith Cells 0-5 /hpf (0-5) 04/18/25 06:15 Amorphous Sediment Not Reportable 04/18/25 06:15 Urine Bacteria None seen /hpf (NONE) 04/18/25 06:15 Hyaline Casts 0-4 /lpf H 04/18/25 06:15 Nasal MRSA (PCR) Not detected (Negative) 04/18/25 16:30 Urine Opiates Screen Negative ng/mL (Negative) 04/18/25 06:15 Ur Barbiturates Screen Negative ng/mL (Negative) 04/18/25 06:15 Ur Phencyclidine Scrn Negative ng/mL (Negative) 04/18/25 06:15 Ur Amphetamines Screen Negative ng/mL (Negative) 04/18/25 06:15 U Benzodiazepines Scrn Negative ng/mL (Negative) 04/18/25 06:15 Urine Cocaine Screen Negative ng/mL (Negative) 04/18/25 06:15 U Marijuana (THC) Screen Positive ng/mL (Negative) H 04/18/25 06:15 Adenovirus (PCR) Not detected (NOT DETECT) 04/18/25 11:50 C. pneumoniae DNA (PCR) Not detected (NOT DETECT) 04/18/25 11:50 C. difficile (PCR) Negative (Negative) 04/18/25 14:06 Coronavirus 229E (PCR) Not detected (NOT DETECT) 04/18/25 11:50 Human Metapneumovir PCR Not detected (NOT DETECT) 04/18/25 11:50 Influenza A (H1) PCR Not detected (NOT DETECT) 04/18/25 11:50 Influenza A (PCR) Negative (Negative) 04/18/25 04:48 Influ A (H1/09) PCR Not detected (NOT DETECT) 04/18/25 11:50 Influenza A (H3) PCR Not detected (NOT DETECT) 04/18/25 11:50 Influenza Type A (PCR) Not detected (NOT DETECT) 04/18/25 11:50 Influenza Type B (PCR) Not detected (NOT DETECT) 04/18/25 11:50 M. pneumoniae (PCR) Not detected (NOT DETECT) 04/18/25 11:50 Parainfluenza 1 (PCR) Not detected (NOT DETECT) 04/18/25 11:50 Parainfluenza 2 (PCR) Not detected (NOT DETECT) 04/18/25 11:50 Parainfluenza 3 (PCR) Not detected (NOT DETECT) 04/18/25 11:50 Parainfluenza 4 (PCR) Not detected (NOT DETECT) 04/18/25 11:50 RSV (PCR) Negative (Negative) 04/18/25 04:48 RSV Type A (PCR) Not detected (NOT DETECT) 04/18/25 11:50 RSV Type B (PCR) Not detected (NOT DETECT) 04/18/25 11:50 Entero/Rhino (PCR) Not detected (NOT DETECT) 04/18/25 11:50 SARS-CoV-2 (PCR) Not detected (NOT DETECT) 04/18/25 11:50 Blood Type A Positive 04/18/25 08:53 Rho(D) Type Rh positive 04/18/25 08:53 Antibody Screen Negative 04/18/25 08:53 Crossmatch See Detail 04/18/25 08:53 Vitals Last Vital Signs Temp 98.3 F 04/20/25 04:00 Pulse 77 04/20/25 06:30 Resp 0 L 04/20/25 06:30 BP 163/95 04/20/25 06:30 Pulse Ox 99 04/20/25 06:30 O2 Del Method Room Air 04/19/25 18:30 Discharge Plan Discharge Patient Disposition: Home Condition: Stable Prescriptions: New pantoprazole 40 mg tablet,delayed release (DR/EC) 40 mg PO BID Qty: 84 0RF sucralfate 1 gram tablet 1 g PO BID 56 Days Qty: 112 0RF Continued sertraline 100 mg tablet 150 mg PO DAILY Qty: 145 3RF lisinopril 10 mg tablet 10 mg PO DAILY Qty: 90 3RF Discontinued ibuprofen [Advil] 200 mg Tablet 400 mg PO Q6H PRN (Reason: Fever Or Pain) Discharge Orders: Discharge Order (Routine); Ordered 04/20/25 Ordered By: Roberto Carlos Rios Other Ambulatory Orders: Sestamibi Stress Test Request (Routine) Timeframe: 4 Days Facility: [facility] - Location: Cardiac Diagnostic Laboratory Ordered By: Roberto Carlos Rios Referrals: Russell Madrid MD [Physician, General Surgery] - 05/09/25 8:35 am Armin Stein MD [Primary Care Provider, Family Practice] - 04/25/25 1:30 pm Discharge Diet: Advance as tolerated and GI Soft Discharge Activity: Increase activity as tolerated Patient Instructions: Sucralfate (By mouth) (Carafate), Pantoprazole (By mouth) (Protonix), Gastrointestinal Bleeding (DC), Anemia (DC), Nuclear Stress Test (GEN), Upper Endoscopy (DC), High Troponin Levels (GEN), GI Post Discharge Instructions w/ Anesthesia, Opioid Safety Activity Restrictions/Additional Instructions: Follow-up with your primary provider for reassessment of blood counts after anemia. Follow-up with surgery in office in 2 weeks for reassessment and to plan for repeat endoscopy in 4 to 6 weeks. Follow-up with your primary doctor as discussed also regarding incidentally noted cystic lesions on your left kidney as well as fatty infiltration of the liver. As discussed be cautious with resumption of sertraline, monitor for any additional dark stools, blood in stool, or any other bleeding, in case she notices hold the medication and seek medical attention. Follow up with your primary provider regarding moderate transient troponin rise on admission and follow up with stress test to assess for possible underlying coronary artery disease. Seek medical attention in case of any worsening or new concerning symptoms. Discharge Attestations Time Spent in Discharge Care*: greater than 30 min Quality Metrics Clinical Quality Measures [ No reported AMI, CVA or VTE this stay] Coding Level of Care Code 20387 Total time (in minutes) for Discharge: 55 Diagnoses Upper gastrointestinal hemorrhage K92.2 Sepsis A41.9
[2025-04-20] MEDS: metoprolol tartrate 25 mg Tablet PO (08:53)
[2025-04-20] MEDS: lisinopril 10 mg Tablet PO (08:53)
--- NOTE | 2025-04-20 10:29 | PC.NURSE ---
Discharge instructions reviewed and discussed. Care notes provided on diagnoses and medications. Pt verbalized understanding. Pt discharge. Pt to patient waiting room for ride home
[2025-04-22 15:15] LABS: Calculated Total (E+NE) 154 mcg/g cr (9-74); Creatinine, Random Urine 50 mg/dL (20-320); Epinephrine Urine 29 mcg/g cr (2-16); Norepinphrine Urine 125 mcg/g cr (7-65)
== END 2025-04-20 10:28 | disposition home or self-care (01) | DRG 871 ==
LOC: ER 06:58 → ICU 07:26
PROVIDERS: Emergency Medicine; Surgery; Admitting Provider Internal Medicine; Emergency Provider Family Medicine; PCP Family Medicine; Visit Provider Internal Medicine
PROC: 0DJ08ZZ Inspection of Upper Intestinal Tract, Via Natural or Artificial Opening Endoscopic (ICD-10-PCS; principal; 2025-04-19 07:00)
DX: A41.9 Sepsis, unspecified organism (principal); I21.A1 Myocardial infarction type 2; K25.4 Chronic or unspecified gastric ulcer with hemorrhage; R57.8 Other shock; D62 Acute posthemorrhagic anemia; E87.20 Acidosis, unspecified; R65.20 Severe sepsis without septic shock; I10 Essential (primary) hypertension; K76.0 Fatty (change of) liver, not elsewhere classified; E66.9 Obesity, unspecified; F32.A Depression, unspecified; Z82.49 Family history of ischemic heart disease and other diseases of the circulatory system
CPT/HCPCS: 36415; 36600; 43239; 51702; 71045; 71275; 74177; 80051; 80053; 80306; 81001; 82274; 82330; 82384; 82570; 82805; 83605; 83690; 84145; 84443; 84484; 85014; 85018; 85025; 85610; 85730; 86140; 86850; 86900; 86920; 87040; 87486; 87493; 87581; 87633; 87637; 88305; 88342; 93005; 93308; 96365; 96375; 96376; 99285; J2020; J2185; J2470; J2704; J3490; J7030; J9999